=== PATIENT | female | born 1975 | race Hispanic/Latino ===

== ENCOUNTER 2020-01-04 20:29 | Emergency (ER) | payer SELFPAY ==
[2020-01-04] MEDS ORDERED: NA CHLORIDE 0.9% 1,000 ML ONE (21:00)
[2020-01-04] MEDS ORDERED: MAGNE/ALUM HYDROXD 30 ML UCUP ONE ×2 (21:01)
[2020-01-04] MEDS ORDERED: LIDOCAINE VISCOUS 2% SOLN 15 ML UDC ONE (21:02)
[2020-01-04 21:12] LABS: Absolute Lymphocytes (CBC) 2.5 K/uL (0.7-4.9); Basophils % 0.2 % (0-1.3); Hematocrit 23.8 % (36.0-45.0); Lymphocytes % 29.6 % (15.3-44.8); MPV 9.4 fL (7.6-11.3); RBC Red Blood Cell Count 4.11 M/uL (3.86-4.86)
[2020-01-04 21:33] LABS: ALT/SGPT 18 U/L (12-78); AST/SGOT 19 U/L (15-37); Albumin 3.4 g/dL (3.4-5.0); Alkaline Phosphatase 106 U/L (45-117); BUN Blood Urea Nitrogen 16 mg/dL (7-18); Bicarbonate 24 mmol/L (21-32); Bilirubin Direct < 0.1 mg/dL (0-0.2); Bilirubin Total 0.3 mg/dL (0.2-1.0); Glucose Level 117 mg/dL (74-106); Lipase 57 U/L (73-393); Potassium 3.1 mmol/L (3.5-5.1); Protein, Total 7.4 g/dL (6.4-8.2); Sodium Level 140 mmol/L (136-145)
[2020-01-04 21:40] LABS: Anisocytosis 1+; Blood Morphology Comment NOTED (NOT SEEN); Hypochromasia 2+; Platelet Estimate ADEQ; Urine White Blood Cell Casts OK
[2020-01-04] MEDS ORDERED: MORPHINE 4 MG/ML SYR ONE (23:51)
[2020-01-05] MEDS ORDERED: NA CHLORIDE 0.9% 250 ML ONE (00:57)
[2020-01-05 05:07] LABS: Hematocrit 24.2 % (36.0-45.0)
--- NOTE | 2020-01-05 05:36 | ER ---
Nurse's Notes [facility] Name: Kathy Valente Age: 44 yrs Sex: Female : 1975 Arrival Date: 01/04/2020 Time: 20:38 Bed 28 Private MD: Diagnosis: Gastritis, unspecified, without bleeding;UTERINE FIBROIDS;Anemia in chronic diseases classified elsewhere Presentation: 01/04 20:38 Presenting complaint: Patient states: abdominal pain, sudden onset. nausea and jv1 vomiting. Transition of care: patient was not received from another setting of care. Onset of symptoms was January 04, 2020 at 20:00. Risk Assessment: Do you want to hurt yourself or someone else? Patient reports no desire to harm self or others. Initial Sepsis Screen: Does the patient meet any 2 criteria? No. Patient's initial sepsis screen is negative. Does the patient have a suspected source of infection? No. Patient's initial sepsis screen is negative. Care prior to arrival: None. 20:38 Method Of Arrival: EMS: [facility] jv1 21:12 Acuity: LETTY 3 jv1 Triage Assessment: 20:46 General: Appears in no apparent distress. uncomfortable, well groomed, Behavior is jv1 calm, cooperative. Pain: Complains of pain in abdomen, epigastric area, suprapubic area Pain does not radiate. Pain currently is 10 out of 10 on a pain scale. Quality of pain is described as aching, crampy, Pain began suddenly, Is intermittent. EENT: No signs and/or symptoms were reported regarding the EENT system. Neuro: Level of Consciousness is awake, alert, obeys commands, Oriented to person, place, time, situation. Cardiovascular: Denies chest pain, Capillary refill < 3 seconds Patient's skin is warm and dry. Respiratory: Airway is patent Breath sounds are clear bilaterally. GI: Abdomen is round non-distended, Bowel sounds present X 4 quads. Abd is soft X 4 quads Abdomen is tender to palpation in epigastric area and suprapubic area Reports lower abdominal pain, upper abdominal pain, nausea, vomiting. : No signs and/or symptoms were reported regarding the genitourinary system. Derm: Skin is intact, is healthy with good turgor, Skin is pink, warm \T\ dry. Musculoskeletal: No signs and/or symptoms reported regarding the musculoskeletal system. Circulation, motion, and sensation intact. Capillary refill < 3 seconds. 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 Historical: - Allergies: 20:45 No Known Allergies; jv1 - PMHx: 20:45 None; jv1 - PSHx: 20:45 Tubal ligation; Appendectomy; jv1 - Immunization history:: Adult Immunizations up to date. - Coronavirus screen:: The patient has NOT traveled to [place], [place], or [place] in the past 14 days. The patient has NOT had contact with known/suspected case of Coronavirus?. - Social history:: Smoking status: Patient/guardian denies using. - Ebola Screening: : No symptoms or risks identified at this time. Screenin:12 Abuse screen: Denies threats or abuse. Nutritional screening: No deficits noted. jv1 Tuberculosis screening: Never had TB. Fall Risk None identified. No fall in past 12 months (0 pts). Assessment: 20:45 General: Appears in no apparent distress. uncomfortable, Behavior is calm, cooperative, jv1 appropriate for age. Pain: Complains of pain in suprapubic area and epigastric area Pain does not radiate. Pain currently is 10 out of 10 on a pain scale. Quality of pain is described as aching, crampy, Pain began suddenly, Is intermittent. Neuro: Level of Consciousness is awake, alert, obeys commands, Oriented to person, place, time, situation. Cardiovascular: Denies chest pain. Respiratory: Airway is patent Respiratory effort is even, unlabored, Respiratory pattern is regular, symmetrical, Breath sounds are clear bilaterally. GI: Abdomen is round non-distended, Bowel sounds present X 4 quads. Abd is soft X 4 quads Abdomen is tender to palpation in suprapubic area and epigastric area Reports lower abdominal pain, upper abdominal pain, nausea, vomiting. : No signs and/or symptoms were reported regarding the genitourinary system. EENT: No signs and/or symptoms were reported regarding the EENT system. Derm: Skin is intact, is healthy with good turgor. Musculoskeletal: No signs and/or symptoms reported regarding the musculoskeletal system. Circulation, motion, and sensation intact. Capillary refill < 3 seconds. 21:26 Reassessment: Patient and/or family updated on plan of care and expected duration. Pain jv1 level reassessed. Patient is alert, oriented x 3, equal unlabored respirations, skin warm/dry/pink. Patient states feeling better. 22:15 Reassessment: Patient appears in no apparent distress at this time. Patient and/or jv1 family updated on plan of care and expected duration. Pain level reassessed. Patient is alert, oriented x 3, equal unlabored respirations, skin warm/dry/pink. Patient states feeling better. Patient states symptoms have improved. 22:51 Reassessment: pt in CT scan. jv1 23:27 Reassessment: Patient and/or family updated on plan of care and expected duration. Pain jv1 level reassessed. Patient is alert, oriented x 3, equal unlabored respirations, skin warm/dry/pink. pt came back from CT scan. 01/05 00:43 Reassessment: Patient and/or family updated on plan of care and expected duration. Pain jv1 level reassessed. Patient is alert, oriented x 3, equal unlabored respirations, skin warm/dry/pink. Patient states feeling better. Patient states symptoms have improved. 01:36 Reassessment: Patient and/or family updated on plan of care and expected duration. Pain jv1 level reassessed. Patient is alert, oriented x 3, equal unlabored respirations, skin warm/dry/pink. Patient states feeling better. Patient states symptoms have improved. ongoing blood transfusion. 02:30 Reassessment: Patient and/or family updated on plan of care and expected duration. Pain jv1 level reassessed. Patient is alert, oriented x 3, equal unlabored respirations, skin warm/dry/pink. Patient states feeling better. Patient states symptoms have improved. finished blood transfusion. no negative reactions noted. . 03:43 Reassessment: Patient appears in no apparent distress at this time. Patient and/or jv1 family updated on plan of care and expected duration. Pain level reassessed. Patient is alert, oriented x 3, equal unlabored respirations, skin warm/dry/pink. Patient states feeling better. Patient states symptoms have improved. . 04:39 Reassessment: pt appears to be sleeping, eyes closed, resp unlabored, arouses easily, bb post transfusion labs drawn pt awaiting results, IV site intact, patent, no erythema or edema noted. 05:50 Reassessment: Patient is alert, oriented x 3, equal unlabored respirations, skin bb warm/dry/pink. pt verbalized understanding of and agrees to plan of care discharge instructions given pt ambulated with steady gait to exit. Vital Signs: 01/04 20:40 BP 115 / 59 LA (auto/lg); Pulse 52; Resp 16 S; Temp 98.2; Pulse Ox 100% on R/A; Pain jp3 8/10; 21:15 BP 122 / 66; Pulse 60; Resp 18; Temp 98.2; Pulse Ox 98% ; Pain 8/10; jv1 21:32 BP 104 / 45; Pulse 60; Resp 18; Temp 98; Pain 5/10; jv1 22:16 BP 107 / 53; Pulse 71; Resp 18; Temp 98.2; Pulse Ox 98% on R/A; Pain 0/10; jv1 23:34 BP 126 / 96; Pulse 79; Resp 18; Temp 98.5; Pulse Ox 100% ; Pain 8/10; jv1 / 00:43 BP 111 / 54; Pulse 61; Resp 18; Temp 98; Pulse Ox 100% ; Pain 0/10; jv1 01:30 BP 107 / 59; Pulse 61; Resp 18; Temp 97.5; Pulse Ox 99% ; Pain 0/10; jv1 02:30 BP 110 / 70; Pulse 61; Resp 18; Temp 97.6; Pulse Ox 99% ; Pain 0/10; jv1 03:43 BP 106 / 60; Pulse 60; Resp 18; Temp 97.5; Pulse Ox 99% ; Pain 0/10; jv1 04:40 BP 106 / 64; Pulse 59; Resp 14 S; Pulse Ox 99% on R/A; bb 05:51 BP 101 / 65; Pulse 61; Resp 16 S; Temp 98.6(O); Pulse Ox 100% on R/A; bb ED Course: 01/04 20:38 Patient arrived in ED. jv1 20:39 Initial lab(s) drawn, by me, held in ED. Maintain EMS IV. Dressing intact. Good blood jp3 return noted. Site clean \T\ dry. Gauge \T\ site: 20-gauge in RAC. Patient maintains SpO2 saturation greater than 95% on room air. 20:39 Safety checks: Family/friend present: yes. Family/friends encouraged to stay with jp3 patient. Patient has correct armband on for positive identification. Call light in reach. Side rails up X 1. Side rails up X2. Warm blanket given. Verbal reassurance given. Pulse ox on. NIBP on. 20:39 Arm band placed on right wrist. Patient placed in an exam room, Patient notified of jv1 wait time. 20:46 Rich Mederos PA is PHCP. cp 20:46 Arnel Stanley MD is Attending Physician. cp 21:00 Initial lab(s) drawn, by me, sent to lab. Urine collected: clean catch specimen, clear, jp3 rafa colored. 21:12 Triage completed. jv1 21:33 CBC Smear Scan Sent. jv1 23:20 IV discontinued, intact, bleeding controlled, No redness/swelling at site. Pressure rr5 dressing applied, complaining of pain. IV line at right AC. 23:21 Inserted saline lock: 20 gauge in left antecubital area, using aseptic technique. rr5 23:35 CT Abd/Pelvis - IV Contrast Only In Process Unspecified. EDMS 01/05 04:40 Repeat lab(s) drawn. by me, sent to lab. bb 05:52 No provider procedures requiring assistance completed. IV discontinued, intact, bb bleeding controlled, No redness/swelling at site. Pressure dressing applied. Administered Medications: 01/04 21:00 Drug: NS 0.9% 1000 ml Route: IV; Rate: 1 bolus; Site: right antecubital; jv1 22:00 Follow up: Response: No adverse reaction; IV Status: Completed infusion jv1 21:02 CANCELLED (Physician Discretion): GI Cocktail with - (Maalox Suspension 30 ml, jv1 Lidocaine Liquid 2 % 20 ml, Phenobarbital-Belladonna 10 ml) PO once 21:11 Drug: GI Cocktail without - (Maalox Suspension 30 ml, Lidocaine Liquid 2 % 15 jv1 ml) Route: PO; 22:00 Follow up: Response: No adverse reaction; Pain is decreased jv1 01/05 00:03 Drug: morphine 4 mg {Note: rass 0.} Route: IVP; Site: left antecubital; jv1 00:30 Follow up: Response: No adverse reaction; Pain is decreased; RASS: Alert and Calm (0) jv1 Outcome: 05:35 Discharge ordered by . hayley 05:53 Discharged to home ambulatory. bb 05:53 Condition: stable 05:53 Discharge instructions given to patient, Instructed on discharge instructions, follow up and referral plans. medication usage, Demonstrated understanding of instructions, follow-up care, medications, Prescriptions given X 2. 05:53 Patient left the ED. bb Signatures: Dispatcher [employer] EDMS Rosaura Barnes RN RN bb Rich Mederos PA PA cp Wadley, Terrence, MD MD tw4 Bebo Devi jp3 Porsha Borja RN RN jv1 Bry Rosas RN RN rr5 Corrections: (The following items were deleted from the chart) 01/04 21:33 21:26 Pain: Complains of pain in suprapubic area and epigastric area Pain currently is jv1 5 out of 10 on a pain scale. jv1
--- NOTE | 2020-01-05 05:36 | EDPHYS ---
Physician Documentation [facility] Name: Kathy Valente Age: 44 yrs Sex: Female : 1975 Arrival Date: 01/04/2020 Time: 20:38 Bed 28 Private MD: ED Physician Arnel Stanley HPI: 01/05 01:23 This 44 yrs old Female presents to ER via EMS with complaints of abdominal tw4 pain. 01:23 The patient presents with abdominal pain. tw4 01:23 Onset: The symptoms/episode began/occurred just prior to arrival, today. The symptoms tw4 do not radiate. Associated signs and symptoms: none. The symptoms are described as sharp. Modifying factors: The symptoms are alleviated by nothing, the symptoms are aggravated by nothing. Severity of pain: At its worst the pain was moderate in the emergency department the pain is unchanged. The patient has not experienced similar symptoms in the past. 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 Historical: - Allergies: 20:45 No Known Allergies; jv1 - PMHx: 20:45 None; jv1 - PSHx: 20:45 Tubal ligation; Appendectomy; jv1 - Immunization history:: Adult Immunizations up to date. - Coronavirus screen:: The patient has NOT traveled to [place], [place], or [place] in the past 14 days. The patient has NOT had contact with known/suspected case of Coronavirus?. - Social history:: Smoking status: Patient/guardian denies using. - Ebola Screening: : No symptoms or risks identified at this time. ROS: 01/05 01:23 Constitutional: Negative for fever, chills, and weight loss, Eyes: Negative for injury, tw4 pain, redness, and discharge, Cardiovascular: Negative for chest pain, palpitations, and edema, Respiratory: Negative for shortness of breath, cough, wheezing, and pleuritic chest pain, Back: Negative for injury and pain, MS/Extremity: Negative for injury and deformity, Skin: Negative for injury, rash, and discoloration. Abdomen/GI: Positive for abdominal pain, nausea, Negative for nausea and vomiting, nausea, vomiting, and diarrhea, diarrhea, constipation, abdominal cramps, abdominal distension, anorexia, dysphagia, hematemesis, black/tarry stool, rectal pain, rectal bleeding. Exam: 01:23 Constitutional: This is a well developed, well nourished patient who is awake, alert, tw4 and in no acute distress. Head/Face: Normocephalic, atraumatic. Chest/axilla: Normal chest wall appearance and motion. Nontender with no deformity. No lesions are appreciated. Cardiovascular: Regular rate and rhythm with a normal S1 and S2. No gallops, murmurs, or rubs. Normal PMI, no JVD. No pulse deficits. Respiratory: Lungs have equal breath sounds bilaterally, clear to auscultation and percussion. No rales, rhonchi or wheezes noted. No increased work of breathing, no retractions or nasal flaring. Abdomen/GI: Soft, non-tender, with normal bowel sounds. No distension or tympany. No guarding or rebound. No evidence of tenderness throughout. Back: No spinal tenderness. No costovertebral tenderness. Full range of motion. MS/ Extremity: Pulses equal, no cyanosis. Neurovascular intact. Full, normal range of motion. Neuro: Awake and alert, GCS 15, oriented to person, place, time, and situation. Cranial nerves II-XII grossly intact. Motor strength 5/5 in all extremities. Sensory grossly intact. Cerebellar exam normal. Normal gait. Vital Signs: 01/04 20:40 BP 115 / 59 LA (auto/lg); Pulse 52; Resp 16 S; Temp 98.2; Pulse Ox 100% on R/A; Pain jp3 8/10; 21:15 BP 122 / 66; Pulse 60; Resp 18; Temp 98.2; Pulse Ox 98% ; Pain 8/10; jv1 21:32 BP 104 / 45; Pulse 60; Resp 18; Temp 98; Pain 5/10; jv1 22:16 BP 107 / 53; Pulse 71; Resp 18; Temp 98.2; Pulse Ox 98% on R/A; Pain 0/10; jv1 23:34 BP 126 / 96; Pulse 79; Resp 18; Temp 98.5; Pulse Ox 100% ; Pain 8/10; jv1 01/05 00:43 BP 111 / 54; Pulse 61; Resp 18; Temp 98; Pulse Ox 100% ; Pain 0/10; jv1 01:30 BP 107 / 59; Pulse 61; Resp 18; Temp 97.5; Pulse Ox 99% ; Pain 0/10; jv1 02:30 BP 110 / 70; Pulse 61; Resp 18; Temp 97.6; Pulse Ox 99% ; Pain 0/10; jv1 03:43 BP 106 / 60; Pulse 60; Resp 18; Temp 97.5; Pulse Ox 99% ; Pain 0/10; jv1 04:40 BP 106 / 64; Pulse 59; Resp 14 S; Pulse Ox 99% on R/A; bb 05:51 BP 101 / 65; Pulse 61; Resp 16 S; Temp 98.6(O); Pulse Ox 100% on R/A; bb MDM: 01/04 21:05 Patient medically screened. tw4 01/05 01:23 Data reviewed: vital signs, nurses notes, lab test result(s), cardiac enzymes, CBC, tw4 electrolytes, hepatic panel. Data interpreted: personnel monitor: rhythm is Pulse oximetry: Interpretation: normal. Counseling: I had a detailed discussion with the patient and/or guardian regarding: the historical points, exam findings, and any diagnostic results supporting the discharge/admit diagnosis. 05:36 Special discussion: Based on the patient's Hx, exam, and Dx evaluation, there is no tw4 indication for emergent surgery or inpatient Tx. It is understood by the patient/guardian that if the Sx's persist or worsen they need to return immediately for re-evaluation. I discussed with the patient/guardian in detail that at this point there is no indication for admission to the hospital. It is understood, however, that if the symptoms persist or worsen the patient needs to return immediately for re-evaluation. ED course: Pt received one unit of PBRC'S. 01/04 20:48 Order name: Basic Metabolic Panel; Complete Time: 21:48 tw4 01/04 21:50 Interpretation: Normal except: K 3.1; GLUC 117; CL 109; CA 8.4. tw4 01/04 20:48 Order name: CBC with Diff; Complete Time: 21:48 tw4 01/04 21:27 Interpretation: Normal except: HCT 23.8; HGB 6.5; MCV 58.1; MCH 15.8; MCHC 27.3; RDW tw4 20.4. 01/04 20:48 Order name: Creatinine for Radiology; Complete Time: 21:48 tw4 01/04 20:48 Order name: Hepatic Function; Complete Time: 21:48 tw4 01/04 20:48 Order name: Lipase; Complete Time: 21:48 tw4 01/04 21:30 Order name: CBC Smear Scan; Complete Time: 21:48 EDOR 01/04 22:12 Order name: CT Abd/Pelvis - IV Contrast Only tw 01/04 22:12 Order name: Type And Screen tw 01/05 00:30 Order name: ABO/RH no charge EDOR 01/05 00:31 Order name: Packed RBC Leukored EDOR 01/05 04:39 Order name: Hemoglobin bb 01/05 04:39 Order name: Hematocrit bb 01/04 20:48 Order name: IV Saline Lock; Complete Time: 21:10 tw4 01/04 20:48 Order name: Labs collected and sent; Complete Time: 21:10 [facility] 01/04 20:48 Order name: Urine Dipstick-Ancillary (obtain specimen); Complete Time: 21:10 tw4 01/04 20:48 Order name: Urine Test (obtain specimen); Complete Time: 21:10 tw4 Administered Medications: 01/04 21:00 Drug: NS 0.9% 1000 ml Route: IV; Rate: 1 bolus; Site: right antecubital; jv1 22:00 Follow up: Response: No adverse reaction; IV Status: Completed infusion jv1 21:02 CANCELLED (Physician Discretion): GI Cocktail with - (Maalox Suspension 30 ml, jv1 Lidocaine Liquid 2 % 20 ml, Phenobarbital-Belladonna 10 ml) PO once 21:11 Drug: GI Cocktail without - (Maalox Suspension 30 ml, Lidocaine Liquid 2 % 15 jv1 ml) Route: PO; 22:00 Follow up: Response: No adverse reaction; Pain is decreased jv1 01/05 00:03 Drug: morphine 4 mg {Note: rass 0.} Route: IVP; Site: left antecubital; jv1 00:30 Follow up: Response: No adverse reaction; Pain is decreased; RASS: Alert and Calm (0) jv1 Disposition: 01/05/20 05:35 Discharged to Home. Impression: Gastritis, unspecified, without bleeding, UTERINE FIBROIDS, Anemia in chronic diseases classified elsewhere. - Condition is Stable. - Discharge Instructions: Anemia, Nonspecific, Gastritis, Adult, [id number], Uterine Fibroids, [id number]. - Prescriptions for Protonix 40 mg Oral Tablet - take 1 tablet by ORAL route once daily; 30 tablet. Zofran 4 mg Oral Tablet - take 1 tablet by ORAL route every 12 hours As needed; 6 tablet. - Medication Reconciliation Form, Thank You Letter, Antibiotic Education, Prescription Opioid Use form. - Follow up: Private Physician; When: Upon discharge from the Emergency Department; Reason: If symptoms return, Recheck today's complaints, Continuance of care, Re-evaluation by your physician. - Problem is an ongoing problem. - Symptoms have improved. Signatures: Dispatcher [employer] EDRosaura Heaton, RN RN Arnel Whatley MD MD tw4 Porsha Borja RN RN jv1 Corrections: (The following items were deleted from the chart) 01/04 21:02 20:48 GI Cocktail with - (Maalox 30 ml, Lidocaine 20 ml, jv1 Phenobarbital-Belladonna 10 ml) PO once ordered. [facility] 21:48 21:49 Normal except: K 3.1; GLUC 117; CL 109. 4 tw4 01/05 04:01 01/04 22:44 Transfer - Initiate ordered. [facility] jv1 01/05 05:53 05:35 01/05/2020 05:35 Discharged to Home. Impression: Gastritis, unspecified, without bb bleeding; UTERINE FIBROIDS; Anemia in chronic diseases classified elsewhere. Condition is Stable. Forms are Medication Reconciliation Form, Thank You Letter, Antibiotic Education, Prescription Opioid Use. Follow up: Private Physician; When: Upon discharge from the Emergency Department; Reason: If symptoms return, Recheck today's complaints, Continuance of care, Re-evaluation by your physician. Problem is an ongoing problem. Symptoms have improved. 4
[2020-01-05 06:20] VITALS: BP 101/65; TEMP 98.6; O2SAT 100
--- NOTE | 2020-01-06 10:58 | RAD REPORT ---
EXAM DESCRIPTION: Abdomen Pelvis W Contrast CLINICAL HISTORY: 44 years Female ABD PAIN COMPARISON: None. TECHNIQUE: Contiguous axial images obtained through the abdomen and pelvis following IV contrast. Re formatted images obtained. This exam was performed according to our department optimization program which includes automated exp osure control, adjustment of the mA and/or kv according to patient size and/or use of iterative recon struction technique. FINDINGS: Minimal dependent atelectatic changes in the dependent right lung. The liver is enlarged measuring 19 cm in length. The spleen and pancreas appear unremarkable. No adrenal masses. The kidneys appear unremarkable. No hydronephrosis. The gallbladder is visualized. No aneurysmal dilatation of the aorta. No bowel obstruction. The appendix is not visualized secondary to previous appendectomy. No significant free pelvic fluid. There are multiple fibroids in the uterus. The largest fibroi d measures approximately 6.5 cm in maximum diameter. Small fat-containing umbilical hernia. IMPRESSION: Fibroid uterus. Mild hepatomegaly. Electronically signed by: Bucky Khalil MD 01/04/2020 11:50 PM JIG AND FIXTURE REPAIRER Due to temporary technical issues with the PACS/Fluency reporting system, reports are being signed by the in house radiologist as a courtesy to ensure prompt reporting. The interpreting radiologist is f ully responsible for the content of the report.
== END 2020-01-05 05:53 | disposition home or self-care (01) ==
LOC: ER 20:29
PROC: 30233N1 Transfusion of Nonautologous Red Blood Cells into Peripheral Vein, Percutaneous Approach (ICD-10-PCS; principal; 2020-01-05)
DX: D64.9 Anemia, unspecified (principal); D25.9 Leiomyoma of uterus, unspecified; K29.70 Gastritis, unspecified, without bleeding
CPT/HCPCS: 36415; 74177; 80048; 80076; 83690; 85014; 85018; 85025; 86850; 86900; 86901; 96361; 96374; 99285; J7030; P9016; Q9967

== ENCOUNTER 2020-11-27 12:43 | Emergency (ER) | payer OTHER, SELFPAY ==
[2020-11-27 13:38] LABS: Absolute Lymphocytes (CBC) 1.9 K/uL (0.7-4.9); Basophils % 0.3 % (0-1.3); Hematocrit 25.8 % (36.0-45.0); Lymphocytes % 40.6 % (15.3-44.8); MPV 9.2 fL (7.6-11.3); RBC Red Blood Cell Count 4.49 M/uL (3.86-4.86)
[2020-11-27 13:45] LABS: Potassium 3.5 mmol/L (3.5-5.1)
--- NOTE | 2020-11-27 13:56 | RAD REPORT ---
EXAM DESCRIPTION: CT - Stone Protocol - 11/27/2020 1:40 pm CLINICAL HISTORY: ABD PAIN COMPARISON: Abdomen Pelvis W Contrast dated 01/04/2020 TECHNIQUE: Axial [address] imaging of the abdomen and pelvis was performed without IV contrast. No IV contrast was given because of allergy, abnormal renal function, patient refusal or physician re quest. No oral contrast. All CT scans are performed using dose optimization technique as appropriate and may include automated exposure control or mA/KV adjustment according to patient size. FINDINGS: No suspicious findings in the lung bases. The liver, spleen and pancreas show no suspicious findings on non-contrast imaging. Gallbladder and b iliary tree are also without suspicious finding. No hydronephrosis or suspicious renal mass. No significant adrenal finding. Isodense renal masses an d pyelonephritis cannot be excluded in the absence of IV contrast. The urinary bladder is without sig nificant finding. Large bulky multi fibroid uterus is noted not clearly different from December 2019. No ovarian suspicious finding. No dilated bowel loops or bowel wall thickening. Appendectomy clips are present. No active GI process seen. No free air, free fluid or inflammatory stranding. No mass or bulky lymphadenopathy. Minimal fat inf iltration into the left inguinal canal similar to comparison. Very minimal fat only umbilical hernia also similar to comparison. No suspicious bony findings. Motion degradation affects the mid and upper abdomen. IMPRESSION: Non-contrast enhanced CT abdomen and pelvis imaging show no acute or emergent finding. Nonacute findings detailed in the body of the report. Full assessment is limited is the absence of IV contrast.
[2020-11-27] MEDS ORDERED: NA CHLORIDE 0.9% 250 ML ONE (14:48)
--- NOTE | 2020-11-27 14:51 | ER ---
Nurse's Notes [facility] Name: Kathy Valente Age: 45 yrs Sex: Female : 1975 Arrival Date: 11/27/2020 Time: 12:47 Bed 19 Private MD: Diagnosis: Anemia, unspecified;Abnormal uterine and vaginal bleeding, unspecified;Leiomyoma of uterus Presentation: 11/27 12:50 Chief complaint: Patient states: Blood work done yesterday. PCP told me my Hgb is low ca1 at 6.5 or 6.6. No complaints at this time. Coronavirus screen: Client denies travel out of the [place] in the last 14 days. At this time, the client does not indicate any symptoms associated with coronavirus-19. Ebola Screen: Patient negative for fever greater than or equal to 101.5 degrees Fahrenheit, and additional compatible Ebola Virus Disease symptoms Patient denies exposure to infectious person. Patient denies travel to an Ebola-affected area in the 21 days before illness onset. No symptoms or risks identified at this time. Initial Sepsis Screen: Does the patient meet any 2 criteria? No. Patient's initial sepsis screen is negative. Does the patient have a suspected source of infection? No. Patient's initial sepsis screen is negative. Risk Assessment: Do you want to hurt yourself or someone else? Patient reports no desire to harm self or others. Onset of symptoms was November 27, 2020. 12:50 Method Of Arrival: Ambulatory ca1 12:50 Acuity: LETTY 3 ca1 Triage Assessment: 12:57 General: Appears in no apparent distress. comfortable, Behavior is calm, cooperative, bp appropriate for age. Pain: Denies pain. EENT: No deficits noted. Neuro: No deficits noted. Cardiovascular: No deficits noted. Respiratory: No deficits noted. GI: No signs and/or symptoms were reported involving the gastrointestinal system. : No signs and/or symptoms were reported regarding the genitourinary system. Derm: No deficits noted. Musculoskeletal: No deficits noted. 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 - Social history:: Smoking status: Patient denies any tobacco usage or history of. Screenin:57 Abuse screen: Denies threats or abuse. Denies injuries from another. Nutritional bp screening: No deficits noted. Tuberculosis screening: No symptoms or risk factors identified. Fall Risk None identified. Assessment: 12:57 General: SEE TRIAGE NOTE. bp 14:36 Reassessment: Patient appears in no apparent distress at this time. No changes from bp previously documented assessment. Patient and/or family updated on plan of care and expected duration. Pain level reassessed. Patient is alert, oriented x 3, equal unlabored respirations, skin warm/dry/pink. CONSENT FOR PRBC TRANSFUSION SIGNED/WITNESSED. PENDING BLOOD BANK DELIVERY. 14:55 Reassessment: Patient appears in no apparent distress at this time. No changes from bp previously documented assessment. Patient and/or family updated on plan of care and expected duration. Pain level reassessed. Patient is alert, oriented x 3, equal unlabored respirations, skin warm/dry/pink. BLOOD BALANCE REQUESTED FROM LAB. 17:32 Reassessment: TRANSFUSION CONCLUDED. PT D/C HOME AMBULATORY WITH FAMILY, DX WITH ANEMIA bp AND FIBROID. Vital Signs: 12:50 BP 129 / 58; Pulse 68; Resp 18 S; Temp 99.5(O); Pulse Ox 100% on R/A; Weight 81.65 kg ca1 (R); Height 5 ft. 4 in. (162.56 cm) (R); Pain 0/10; 13:46 BP 117 / 62; Pulse 74; Resp 17; Pulse Ox 100% on R/A; mh5 14:30 BP 105 / 44; Pulse 61; Resp 16; Pulse Ox 100% ; bp 15:30 BP 116 / 75; Pulse 69; Resp 17; Pulse Ox 97.8% ; bp 17:30 BP 101 / 63; Pulse 72; Resp 16; Temp 97.1; Pulse Ox 100% ; bp 12:50 Body Mass Index 30.90 (81.65 kg, 162.56 cm) ca1 ED Course: 12:47 Patient arrived in ED. rg4 12:53 Triage completed. ca1 12:54 Arm band placed on right wrist. ca1 12:57 Delta Arnett, RN is Primary Nurse. bp 12:57 Patient has correct armband on for positive identification. Bed in low position. Call bp light in reach. Side rails up X2. 12:58 Wendi Evans FNP-C is [facility]. kb 12:58 Arnel Stanley MD is Attending Physician. kb 13:15 Inserted saline lock: 20 gauge in right wrist, using aseptic technique. Blood collected.bp 13:41 CT Stone Protocol In Process Unspecified. EDMS 17:30 No provider procedures requiring assistance completed. IV discontinued, intact, bp bleeding controlled, No redness/swelling at site. Pressure dressing applied. Administered Medications: No medications were administered Outcome: 14:50 Discharge ordered by MD. kb 17:30 Discharged to home ambulatory. bp 17:30 Condition: stable 17:30 Discharge instructions given to patient, Instructed on discharge instructions, follow up and referral plans. Demonstrated understanding of instructions, follow-up care. 17:39 Patient left the ED. bp Signatures: Dispatcher [employer] EDRI Wendi Evans FNP-C FNP-Ckb Garcia, Rubi 4 Ivy Valente [facility] Delta Arnett, RN RN bp Vero Givens RN RN ca1
--- NOTE | 2020-11-27 14:51 | EDPHYS ---
Physician Documentation [facility] Name: Kathy Valente Age: 45 yrs Sex: Female : 1975 Arrival Date: 11/27/2020 Time: 12:47 Bed 19 Private MD: ED Physician Arnel Stanley HPI: 11/27 14:25 This 45 yrs old Female presents to ER via Ambulatory with complaints of kb Abnormal Lab Results. 14:25 The patient presents with vaginal bleeding that is moderate. Onset: The kb symptoms/episode began/occurred year ago. Modifying factors: The symptoms are alleviated by nothing, the symptoms are aggravated by nothing. Associated signs and symptoms: Pertinent positives: vaginal bleeding. Severity of symptoms: At their worst the symptoms were moderate, in the emergency department the symptoms are unchanged. The patient's method of control includes BCP. The patient has experienced similar episodes in the past. The patient has been recently seen by a physician: the patient's primary care provider, yesterday, with similar presenting complaints, lab tests were done. Pt reports she has had fatigue, shortness of breath on exertion and weakness for a long time. Asked her PCP to do labs yesterday. Today was called and told that her hgb was 6.5 and that she needed to come here for a transfusion. Pt reports she has had heavy periods for years and that she has mild vaginal bleeding between periods. Has been seen for this issue and was put on iron supplements and BCP but it hasn't helped. "I think it's time to have it all taken out.". 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 - Social history:: Smoking status: Patient denies any tobacco usage or history of. ROS: 14:22 Cardiovascular: Negative for chest pain, palpitations, and edema, Abdomen/GI: Negative kb for abdominal pain, nausea, vomiting, diarrhea, and constipation, MS/Extremity: Negative for injury and deformity, Skin: Negative for injury, rash, and discoloration. 14:22 Constitutional: Positive for fatigue, Negative for body aches, chills, fever, malaise, poor PO intake, weight loss. 14:22 Respiratory: Positive for dyspnea on exertion. 14:22 : Positive for vaginal bleeding. 14:22 Neuro: Positive for weakness. Exam: 14:22 Constitutional: This is a well developed, well nourished patient who is awake, alert, kb and in no acute distress. Head/Face: Normocephalic, atraumatic. Chest/axilla: Normal chest wall appearance and motion. Nontender with no deformity. No lesions are appreciated. Cardiovascular: Regular rate and rhythm with a normal S1 and S2. No gallops, murmurs, or rubs. Normal PMI, no JVD. No pulse deficits. Respiratory: Lungs have equal breath sounds bilaterally, clear to auscultation and percussion. No rales, rhonchi or wheezes noted. No increased work of breathing, no retractions or nasal flaring. Abdomen/GI: Soft, non-tender, with normal bowel sounds. No distension or tympany. No guarding or rebound. No evidence of tenderness throughout. Skin: Warm, dry with normal turgor. Normal color with no rashes, no lesions, and no evidence of cellulitis. MS/ Extremity: Pulses equal, no cyanosis. Neurovascular intact. Full, normal range of motion. Neuro: Awake and alert, GCS 15, oriented to person, place, time, and situation. Cranial nerves II-XII grossly intact. Motor strength 5/5 in all extremities. Sensory grossly intact. Cerebellar exam normal. Normal gait. Vital Signs: 12:50 BP 129 / 58; Pulse 68; Resp 18 S; Temp 99.5(O); Pulse Ox 100% on R/A; Weight 81.65 kg ca1 (R); Height 5 ft. 4 in. (162.56 cm) (R); Pain 0/10; 13:46 BP 117 / 62; Pulse 74; Resp 17; Pulse Ox 100% on R/A; mh5 14:30 BP 105 / 44; Pulse 61; Resp 16; Pulse Ox 100% ; bp 15:30 BP 116 / 75; Pulse 69; Resp 17; Pulse Ox 97.8% ; bp 17:30 BP 101 / 63; Pulse 72; Resp 16; Temp 97.1; Pulse Ox 100% ; bp 12:50 Body Mass Index 30.90 (81.65 kg, 162.56 cm) ca1 MDM: 12:59 Patient medically screened. kb 14:24 Data reviewed: vital signs, nurses notes. Data interpreted: Pulse oximetry: on room air kb is 100 %. Interpretation: normal. 14:24 Counseling: I had a detailed discussion with the patient and/or guardian regarding: the kb historical points, exam findings, and any diagnostic results supporting the discharge/admit diagnosis, lab results, radiology results, the need for outpatient follow up, an OB/Gyne specialist, to return to the emergency department if symptoms worsen or persist or if there are any questions or concerns that arise at home. 14:24 ED course: Discussed transfusion with ERP. Agrees with transfusing one unit and kb discharging home to follow up with REMEDIAL PROJECT MANAGER. Pt will follow up with Dr Randolph. 11/27 13:02 Order name: CBC with Diff; Complete Time: 13:55 kb 11/27 13:02 Order name: Basic Metabolic Panel; Complete Time: 13:46 kb 11/27 13:02 Order name: Type And Screen kb 11/27 13:16 Order name: Hemoglobin A1c bp 11/27 14:14 Order name: LAB Add On eb 11/27 14:36 Order name: Packed RBCs (Additional Unit) EDMS 11/27 13:02 Order name: IV Start; Complete Time: 13:19 kb 11/27 13:20 Order name: CT Stone Protocol; Complete Time: 13:59 kb Administered Medications: No medications were administered Disposition: 11/27/20 14:50 Discharged to Home. Impression: Anemia, unspecified, Abnormal uterine and vaginal bleeding, unspecified, Leiomyoma of uterus. - Condition is Stable. - Discharge Instructions: Anemia, Nonspecific, Uterine Fibroids, [id number], Abnormal Uterine Bleeding, [id number]. - Medication Reconciliation Form, Thank You Letter, Antibiotic Education, Prescription Opioid Use form. - Follow up: Emergency Department; When: As needed; Reason: Worsening of condition. Follow up: Private Physician; When: 2 - 3 days; Reason: Recheck today's complaints, Continuance of care, Re-evaluation by your physician. Addendum: 11/29/2020 07:36 Co-signature as Attending Physician, Arnel Stanley MD I agree with the assessment and t w4 plan of care. Signatures: Dispatcher [employer] EDWendi Thakkar, STANLEY LITTLEJOHN-Delta Gannon, RN RN bp Arenl Stanley MD MD tw4 Vero Givens RN RN ca1 Corrections: (The following items were deleted from the chart) 11/27 17:39 14:50 11/27/2020 14:50 Discharged to Home. Impression: Anemia, unspecified; Abnormal bp uterine and vaginal bleeding, unspecified; Leiomyoma of uterus. Condition is Stable. Discharge Instructions: Anemia, Nonspecific, Uterine Fibroids, [id number], Abnormal Uterine Bleeding, [id number]. Forms are Medication Reconciliation Form, Thank You Letter, Antibiotic Education, Prescription Opioid Use. Follow up: Emergency Department; When: As needed; Reason: Worsening of condition. Follow up: Private Physician; When: 2 - 3 days; Reason: Recheck today's complaints, Continuance of care, Re-evaluation by your physician. kb
[2020-11-27 17:55] VITALS: O2SAT 100
[2020-11-27 17:59] VITALS: BP 101/63; TEMP 97.1
== END 2020-11-27 17:39 | disposition home or self-care (01) ==
LOC: ER 12:43
PROC: 30233N1 Transfusion of Nonautologous Red Blood Cells into Peripheral Vein, Percutaneous Approach (ICD-10-PCS; principal; 2020-11-27)
DX: D64.9 Anemia, unspecified (principal); N93.9 Abnormal uterine and vaginal bleeding, unspecified; D25.9 Leiomyoma of uterus, unspecified
CPT/HCPCS: 85025; 80048; 36415; 86900; 86850; 86901; 76377; 74176; 99284; 36430; P9016; J7050

== ENCOUNTER 2021-01-30 16:13 | Emergency (ER) | payer OTHER ==
[2021-01-30 17:34] LABS: Absolute Lymphocytes (CBC) 1.6 K/uL (0.7-4.9); Basophils % 0.4 % (0-1.3); Hematocrit 24.8 % (36.0-45.0); Lymphocytes % 17.7 % (15.3-44.8); MPV 8.7 fL (7.6-11.3); RBC Red Blood Cell Count 4.16 M/uL (3.86-4.86)
[2021-01-30] MEDS ORDERED: ONDANSETRON 4 MG/2 ML VIAL ONE (17:36)
[2021-01-30] MEDS ORDERED: MORPHINE 4 MG/ML SYR ONE (17:36)
[2021-01-30 17:44] LABS: Albumin 3.5 g/dL (3.4-5.0); Bilirubin Direct 0.1 mg/dL (0-0.2); Bilirubin Total 0.3 mg/dL (0.2-1.0); Potassium 3.4 mmol/L (3.5-5.1); Protein, Total 7.5 g/dL (6.4-8.2)
--- NOTE | 2021-01-30 18:18 | RAD REPORT ---
EXAM DESCRIPTION: CT - Abdomen Pelvis W Contrast - 01/30/2021 5:59 pm CLINICAL HISTORY: ABD PAINthat is chronic with more severe pain today. History of fibroids. COMPARISON: Abdomen Pelvis W Contrast dated 01/04/2020; Stone Protocol dated 11/27/2020 TECHNIQUE: Biphasic, helical CT imaging of the abdomen and pelvis was performed following 100 ml non -ionic IV contrast. No oral contrast administered. All CT scans are performed using dose optimization technique as appropriate and may include automated exposure control or mA/KV adjustment according to patient size. FINDINGS: No suspicious findings in the lung bases. The liver, spleen, and pancreas show no suspicious findings. Fatty infiltration of the liver is prese nt. No gallbladder or biliary tree abnormality. Symmetric renal function is seen with no hydronephrosis or suspicious renal mass. No pyelonephritis o r acute parenchymal process. No bladder abnormalities. No adrenal abnormalities. Enlarged, lobulated uterus is noted. In the central uterus there is a 4.6 centimeter heterogeneous mass. Posterior left m id uterus demonstrates a 4.6 centimeter mass. These are both believed to be fibroids. Both measure la rger on the current examination compared with December 2019. There is a 2.4 centimeter left ovarian c yst. A 4.2 centimeter right ovarian cyst is present without rupture or hemorrhage findings. A 4.3 joaquin timeter exophytic mass lateral lower uterus on the right has not changed. Endometrium is distorted by the multiple fibroids. Additional smaller fibroids may well be present. . No dilated bowel loops or bowel wall thickening. No free air, free fluid or inflammatory stranding. No hernia, mass or bulky lymphadenopathy. No suspicious bony findings. IMPRESSION: Multi fibroid uterus as detailed above. Some of the fibroids have enlarged since 2019. No acute or emergent uterine finding. A 4.2 centimeter posterior right adnexal cystic mass believed to be an ovarian cyst rather than uteri ne mass. No cyst rupture or hemorrhage findings. No free air, free fluid or inflammatory stranding. No acute or GI finding. Liver is fatty infiltrated.
[2021-01-30 18:42] LABS: Anisocytosis 1+; Blood Morphology Comment NOTED (NOT SEEN); Hypochromasia 3+; Ovalocytes 1+; Platelet Estimate ADEQ; Poikilocytosis 2+; Polychromasia SLIGHT; Teardrop Cell 1+; White Blood Cell Scan OK (OK)
--- NOTE | 2021-01-30 19:27 | EDPHYS ---
Physician Documentation [facility] Name: Kathy Valente Age: 45 yrs Sex: Female : 1975 Arrival Date: 01/30/2021 Time: 16:14 Bed 24 Private MD: LUIS Physician Rich Lopez HPI: 01/30 16:49 This 45 yrs old Female presents to ER via Ambulatory with complaints of pm1 Abdominal Pain. 16:49 The patient presents with abdominal pain in the lower abdomen. Onset: The pm1 symptoms/episode began/occurred ongoing for multiple years but worse today. The symptoms do not radiate. Associated signs and symptoms: Pertinent positives: nausea, Pertinent negatives: diarrhea, dysuria, fever, vomiting. The symptoms are described as crampy. Modifying factors: The symptoms are alleviated by nothing, the symptoms are aggravated by nothing. Severity of pain: in the emergency department the pain is actually worse. The patient has experienced similar episodes in the past, multiple times, today's symptoms are similar, to previous fibroids. The patient has not recently seen a physician, last seen here in the ER for similar pain at the beginning of the year. 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 - Social history:: Smoking status: . ROS: 16:49 Constitutional: Negative for fever, chills, and weight loss, Cardiovascular: Negative pm1 for chest pain, palpitations, and edema, Respiratory: Negative for shortness of breath, cough, wheezing, and pleuritic chest pain. 16:49 Back: Negative for injury and pain, MS/Extremity: Negative for injury and deformity, Skin: Negative for injury, rash, and discoloration, Neuro: Negative for headache, weakness, numbness, tingling, and seizure. 16:49 Abdomen/GI: Positive for abdominal pain, nausea, of the right lower quadrant and left lower quadrant, Negative for vomiting, diarrhea, constipation. Exam: 16:49 Constitutional: This is a well developed, well nourished patient who is awake, alert, pm1 and in no acute distress. Head/Face: Normocephalic, atraumatic. 16:49 Back: No spinal tenderness. No costovertebral tenderness. Full range of motion. Skin: Warm, dry with normal turgor. Normal color with no rashes, no lesions, and no evidence of cellulitis. MS/ Extremity: Pulses equal, no cyanosis. Neurovascular intact. Full, normal range of motion. 16:49 Cardiovascular: Exam negative for acute changes, Rate: normal, Rhythm: regular, Pulses: no pulse deficits are appreciated. 16:49 Respiratory: Exam negative for acute changes, respiratory distress, shortness of breath. 16:49 Abdomen/GI: Inspection: abdomen appears normal, Palpation: soft, in all quadrants, mild abdominal tenderness, in the suprapubic area. 16:49 Neuro: Exam negative for acute changes, Orientation: is normal, Mentation: is normal, Motor: is normal, moves all fours. Vital Signs: 16:27 BP 132 / 83; Pulse 80; Resp 16; Temp 97.4; Pulse Ox 100% on R/A; iw 17:30 BP 119 / 65; Pulse 67; Resp 16 S; Pulse Ox 100% on R/A; ca1 18:20 BP 94 / 52; Pulse 71; Resp 16 S; Pulse Ox 100% on R/A; ca1 19:00 BP 99 / 55; Pulse 70; Resp 16; Pulse Ox 100% ; sf MDM: 16:34 Patient medically screened. nereyda 17:42 ED course: Stable anemia since 11/27/2020. Patient without any vaginal bleeding or any pm1 other signs of bleeding. 19:24 Data reviewed: vital signs. Data interpreted: Pulse oximetry: on room air is 100 %. pm1 Interpretation: normal. Counseling: I had a detailed discussion with the patient and/or guardian regarding: the historical points, exam findings, and any diagnostic results supporting the discharge/admit diagnosis, lab results, radiology results, the need for outpatient follow up, for definitive care, an OB/Gyne specialist, to return to the emergency department if symptoms worsen or persist or if there are any questions or concerns that arise at home. 19:27 ED course: Patient reports noncompliance with her iron supplementation and pm1 control pills. Recommended follow up with fur mixer operator and improved dietary for iron deficiency anemia. 01/30 16:49 Order name: Basic Metabolic Panel; Complete Time: 17:44 pm1 01/30 16:49 Order name: CBC with Diff; Complete Time: 18:48 pm1 01/30 16:49 Order name: Hepatic Function; Complete Time: 17:44 pm1 01/30 16:49 Order name: Lipase; Complete Time: 17:44 pm1 01/30 17:33 Order name: Urine Dipstick--Ancillary (enter results) eb 01/30 17:33 Order name: Urine --Ancillary (enter results); Complete Time: 20:14 eb 01/30 16:49 Order name: IV Saline Lock; Complete Time: 17:17 pm1 01/30 16:49 Order name: Labs collected and sent; Complete Time: 17:17 pm1 01/30 16:49 Order name: CT Abd/Pelvis - IV Contrast Only pm1 01/30 17:34 Order name: Urine Dipstick-Ancillary; Complete Time: 20:14 EDMS 01/30 18:19 Order name: CT; Complete Time: 18:48 EDMS 01/30 18:43 Order name: CBC Smear Scan; Complete Time: 18:48 EDMS 01/30 16:49 Order name: Urine Dipstick-Ancillary (obtain specimen); Complete Time: 17:16 pm1 01/30 16:49 Order name: Urine Test (obtain specimen); Complete Time: 17:16 pm1 Administered Medications: 17:20 Drug: Zofran (Ondansetron) 4 mg Route: IVP; Site: left antecubital; ca1 17:22 Drug: morphine 4 mg {Note: RASS 0.} Route: IVP; Site: left antecubital; ca1 Disposition: 01/31 09:08 Co-signature as Attending Physician, Rich PIZARRO I agree with the assessment and nereyda plan of care. Disposition: 01/30/21 19:26 Discharged to Home. Impression: Unspecified ovarian cysts, Leiomyoma of uterus, Anemia, unspecified. - Condition is Stable. - Discharge Instructions: Iron Deficiency Anemia, Adult, Anemia, Nonspecific, Iron-Rich Diet, Uterine Fibroids, Ovarian Cyst. - Prescriptions for Ferrous Sulfate 325 mg (65 mg Iron) Oral Tablet - take 1 tablet by ORAL route every 8 hours; 90 tablet. Tylenol- Codeine #3 300-30 mg Oral Tablet - take 2 tablets by ORAL route every 4-6 hours As needed; 20 tablet. - Medication Reconciliation Form, Thank You Letter, Antibiotic Education, Prescription Opioid Use form. - Follow up: Emergency Department; When: As needed; Reason: Worsening of condition. Follow up: Private Physician; When: 2 - 3 days; Reason: Recheck today's complaints, Continuance of care, Re-evaluation by your physician. - Problem is new. - Symptoms have improved. Signatures: Dispatcher [employer] EDWA Rich Lopez MD MD cha Williams, Irene, RN RN iw Joel Bolaños NP MEAT COOLER pm1 Vero Givens RN RN ca1 Alexander Chinchilla RN RN sf Corrections: (The following items were deleted from the chart) 01/30 20:25 16:49 This 45 yrs old Female presents to ER via Ambulatory with complaints of pm1 Abdominal Pain - low. pm1 20:28 19:26 01/30/2021 19:26 Discharged to Home. Impression: Unspecified ovarian cysts; sf Leiomyoma of uterus; Anemia, unspecified. Condition is Stable. Forms are Medication Reconciliation Form, Thank You Letter, Antibiotic Education, Prescription Opioid Use. Follow up: Emergency Department; When: As needed; Reason: Worsening of condition. Follow up: Private Physician; When: 2 - 3 days; Reason: Recheck today's complaints, Continuance of care, Re-evaluation by your physician. Problem is new. Symptoms have improved. pm1
--- NOTE | 2021-01-30 19:27 | ER ---
Nurse's Notes [facility] Name: Kathy Valente Age: 45 yrs Sex: Female : 1975 Arrival Date: 01/30/2021 Time: 16:14 Bed 24 Private MD: Diagnosis: Unspecified ovarian cysts;Leiomyoma of uterus;Anemia, unspecified Presentation: 01/30 16:27 Chief complaint: Patient states: has had lower abd pain for a couple years, was told iw she had uterine fibroids, today she had a lot of pain and felt like something ruptured. Coronavirus screen: At this time, the client does not indicate any symptoms associated with coronavirus-19. Ebola Screen: Patient negative for fever greater than or equal to 101.5 degrees Fahrenheit, and additional compatible Ebola Virus Disease symptoms Patient denies exposure to infectious person. Patient denies travel to an Ebola-affected area in the 21 days before illness onset. No symptoms or risks identified at this time. Initial Sepsis Screen: Does the patient meet any 2 criteria? No. Patient's initial sepsis screen is negative. Does the patient have a suspected source of infection? No. Patient's initial sepsis screen is negative. Risk Assessment: Do you want to hurt yourself or someone else? Patient reports no desire to harm self or others. Onset of symptoms was January 30, 2021. 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 - Social history:: Smoking status: . Screenin:45 Abuse screen: Denies threats or abuse. Denies injuries from another. Nutritional ca1 screening: No deficits noted. Tuberculosis screening: No symptoms or risk factors identified. Fall Risk IV access (20 points). Assessment: 16:45 General: Appears in no apparent distress. comfortable, Behavior is calm, cooperative, ca1 appropriate for age. Pain: Complains of pain in right lower quadrant and left lower quadrant Pain currently is 7 out of 10 on a pain scale. Pain began 1 day ago. Is intermittent. Neuro: Level of Consciousness is awake, alert, obeys commands, Oriented to person, place, time, situation. Cardiovascular: Heart tones S1 S2 present Capillary refill < 3 seconds Patient's skin is warm and dry. Respiratory: Airway is patent Respiratory effort is even, unlabored, Respiratory pattern is regular, symmetrical, Breath sounds are clear bilaterally. GI: Abdomen is round non-distended, Bowel sounds present X 4 quads. Abd is soft X 4 quads Abdomen is tender to palpation in right lower quadrant and left lower quadrant Reports nausea. : No signs and/or symptoms were reported regarding the genitourinary system. EENT: No signs and/or symptoms were reported regarding the EENT system. Derm: Skin is intact, is healthy with good turgor, Skin is pink, warm \T\ dry. Musculoskeletal: Circulation, motion, and sensation intact. Capillary refill < 3 seconds. 17:30 Reassessment: Patient appears in no apparent distress at this time. Patient and/or ca1 family updated on plan of care and expected duration. Pain level reassessed. Patient is alert, oriented x 3, equal unlabored respirations, skin warm/dry/pink. 18:20 Reassessment: Patient appears in no apparent distress at this time. Patient and/or ca1 family updated on plan of care and expected duration. Pain level reassessed. Patient is alert, oriented x 3, equal unlabored respirations, skin warm/dry/pink. Vital Signs: 16:27 BP 132 / 83; Pulse 80; Resp 16; Temp 97.4; Pulse Ox 100% on R/A; iw 17:30 BP 119 / 65; Pulse 67; Resp 16 S; Pulse Ox 100% on R/A; ca1 18:20 BP 94 / 52; Pulse 71; Resp 16 S; Pulse Ox 100% on R/A; ca1 19:00 BP 99 / 55; Pulse 70; Resp 16; Pulse Ox 100% ; sf ED Course: 16:14 Patient arrived in ED. am2 16:28 Triage completed. iw 16:32 Joel Bolaños NP is PHCP. pm1 16:32 Rich Lopez MD is Attending Physician. pm1 16:42 Vero Givens RN is Primary Nurse. ca1 16:45 Patient has correct armband on for positive identification. Placed in gown. Bed in low ca1 position. Call light in reach. Side rails up X 1. Pulse ox on. NIBP on. Warm blanket given. 16:45 Arm band placed on right wrist. ca1 17:10 Missed attempt(s): 20 gauge in right antecubital area. Bleeding controlled, band aid ca1 applied, catheter tip intact. 17:17 Initial lab(s) drawn, by il, sent to lab. Inserted saline lock: 22 gauge in left ca1 antecubital area, using aseptic technique. Blood collected. 17:35 Notified Nurse Practitioner and/or Physician Pharmacy Student of a critical lab result(s), hgb ca1 7.2. 20:27 No provider procedures requiring assistance completed. IV discontinued, intact, sf bleeding controlled, No redness/swelling at site. Pressure dressing applied. Administered Medications: 17:20 Drug: Zofran (Ondansetron) 4 mg Route: IVP; Site: left antecubital; ca1 17:22 Drug: morphine 4 mg {Note: RASS 0.} Route: IVP; Site: left antecubital; ca1 Outcome: 19:26 Discharge ordered by . pm1 20:28 Discharged to home ambulatory. sf 20:28 Condition: stable 20:28 Discharge instructions given to patient, Instructed on discharge instructions, follow up and referral plans. medication usage, Demonstrated understanding of instructions, follow-up care, medications, Prescriptions given X 2. 20:28 Patient left the ED. sf Signatures: Silvia Colvin RN RN iw Joel Bolaños NP CERTIFIED PROSTHETIST VICE PRESIDENT pm1 Nicki Dos Santos am2 Vero Givens RN RN ca1 Alexander Chinchilla RN RN sf
[2021-01-30 20:03] LABS: Urine Blood NEGATIVE (NEG); Urine Glucose NEGATIVE (NEG); Urine Protein 1+ (NEG)
[2021-01-30 20:39] VITALS: TEMP 97.4; O2SAT 100
[2021-01-30 20:43] VITALS: BP 99/55
== END 2021-01-30 20:28 | disposition home or self-care (01) ==
LOC: ER 16:13
DX: N83.201 Unspecified ovarian cyst, right side (principal); D25.9 Leiomyoma of uterus, unspecified; D64.9 Anemia, unspecified
CPT/HCPCS: 85025; 80048; 36415; 81025; 80076; 81003; 83690; 74177; 96375; 96374; 99284; Q9967; J2405

== ENCOUNTER 2021-04-16 20:31 | Emergency (ER) | payer OTHER ==
[2021-04-16 21:10] LABS: Absolute Lymphocytes (CBC) 2.7 K/uL (0.7-4.9); Basophils % 0.9 % (0-1.3); Hematocrit 24.7 % (36.0-45.0); Lymphocytes % 25.6 % (15.3-44.8); RBC Red Blood Cell Count 4.27 M/uL (3.86-4.86)
[2021-04-16 21:33] LABS: BUN Blood Urea Nitrogen 16 mg/dL (7-18); Bicarbonate 24 mmol/L (21-32); Glucose Level 110 mg/dL (74-106); Potassium 3.4 mmol/L (3.5-5.1); Sodium Level 140 mmol/L (136-145)
[2021-04-16 21:37] LABS: Anisocytosis 2+; Blood Morphology Comment NOTED (NOT SEEN); Hypochromasia 3+; Ovalocytes 2+; Platelet Estimate ADEQ; White Blood Cell Scan OK (OK)
[2021-04-16] MEDS ORDERED: KETOROLAC 30 MG/ML INJ ONE (22:00)
[2021-04-16 22:09] LABS: Urine Blood Negative (Negative); Urine Glucose Negative (Negative); Urine Protein Negative (Negative); Urine Specific Gravity >=1.030 (1.005-1.030); Urine pH 6.5 (5.0-7.0)
--- NOTE | 2021-04-16 22:35 | EDPHYS ---
Physician Documentation [facility] Name: Kathy Valente Age: 45 yrs Sex: Female : 1975 Arrival Date: 04/16/2021 Time: 20:34 Bed 23 Private MD: ED Physician Felice Jang HPI: 04/16 23:21 This 45 yrs old Female presents to ER via Ambulatory with complaints of kb Abdominal Pain. 23:21 The patient presents with abdominal pain right lower quadrant. Onset: The kb symptoms/episode began/occurred yesterday. The symptoms radiate to right back. Associated signs and symptoms: Pertinent positives: vaginal bleeding, Pertinent negatives: nausea, vomiting, and diarrhea, fever. The symptoms are described as constant, sharp. Modifying factors: The symptoms are alleviated by nothing, the symptoms are aggravated by nothing. Severity of pain: At its worst the pain was moderate in the emergency department the pain is unchanged. The patient has experienced similar episodes in the past. The patient has not recently seen a physician. Pt reports right pelvic pain that started again yesterday. States she has had these pain several times in the past due to ovarian cysts. States she hasn't been able to follow up with TU[facility]TER due to child protection specialist conflicts. . 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 - Social history:: Smoking status: Patient denies any tobacco usage or history of. ROS: 23:21 Constitutional: Negative for fever, chills, and weight loss. kb 23:21 Abdomen/GI: Positive for abdominal pain, Negative for nausea, vomiting, and diarrhea. 23:21 : Positive for pelvic pain, vaginal bleeding. 23:21 All other systems are negative. Exam: 23:23 Constitutional: This is a well developed, well nourished patient who is awake, alert, kb and in no acute distress. ENT: Moist Mucous membranes Cardiovascular: Regular rate and rhythm with a normal S1 and S2. No gallops, murmurs, or rubs. No pulse deficits. Respiratory: Respirations even and unlabored. No increased work of breathing, no retractions or nasal flaring. Skin: Warm, dry with normal turgor. Normal color. MS/ Extremity: Pulses equal, no cyanosis. Neurovascular intact. Full, normal range of motion. Neuro: Awake and alert, GCS 15, oriented to person, place, time, and situation. Moves all extremities. Normal gait. Psych: Awake, alert, with orientation to person, place and time. Behavior, mood, and affect are within normal limits. 23:23 Abdomen/GI: Inspection: abdomen appears normal, Bowel sounds: normal, Palpation: moderate abdominal tenderness, in the right lower quadrant/pelvic. Vital Signs: 20:41 BP 117 / 73; Pulse 84; Resp 16; Temp 97.7; Pulse Ox 96% on R/A; Weight 86.18 kg; Height vg1 5 ft. 4 in. (162.56 cm); Pain 8/10; 21:20 BP 113 / 69; Pulse 75; Resp 19; Pulse Ox 99% ; rr5 22:00 BP 126 / 89; Pulse 85; Resp 16; Pulse Ox 98% ; rr5 22:49 BP 115 / 80; Pulse 80; Resp 15; Pulse Ox 100% ; rr5 20:41 Body Mass Index 32.61 (86.18 kg, 162.56 cm) vg1 MDM: 20:52 Patient medically screened. kb 23:20 Data reviewed: vital signs, nurses notes. Data interpreted: Pulse oximetry: on room air kb is 100 %. Interpretation: normal. Counseling: I had a detailed discussion with the patient and/or guardian regarding: the historical points, exam findings, and any diagnostic results supporting the discharge/admit diagnosis, lab results, radiology results, the need for outpatient follow up, an OB/Gyne specialist, to return to the emergency department if symptoms worsen or persist or if there are any questions or concerns that arise at home. 04/16 20:52 Order name: Basic Metabolic Panel; Complete Time: 21:33 kb 04/16 20:52 Order name: CBC with Diff; Complete Time: 21:39 kb 04/16 21:04 Order name: US Transvaginal Study (Probe) kb 04/16 21:20 Order name: CBC Smear Scan; Complete Time: 21:39 EDMS 04/16 22:09 Order name: Urine Dipstick-Ancillary; Complete Time: 22:14 EDMS 04/16 20:52 Order name: IV Saline Lock; Complete Time: 21:00 kb 04/16 20:52 Order name: Labs collected and sent; Complete Time: 21:00 kb 04/16 21:04 Order name: Urine Dipstick-Ancillary (obtain specimen); Complete Time: 22:08 kb Administered Medications: 21:50 Drug: TORadol - (ketorolac) 15 mg Route: IVP; Site: right antecubital; rr5 22:50 Follow up: Response: No adverse reaction; Pain is decreased rr5 Disposition: 04/17 04:14 Co-signature as Attending Physician, Felice Jang MD. mh7 Disposition: 04/16/21 22:34 Discharged to Home. Impression: Unspecified ovarian cysts, Leiomyoma of uterus, Anemia, unspecified. - Condition is Stable. - Discharge Instructions: Ovarian Cyst, Luov-rd-Laff, Uterine Fibroids, Pbra-xv-Chsd. - Prescriptions for Diclofenac Sodium 75 mg Oral Tablet, Delayed Release (E.C.) - take 1 tablet by ORAL route 2 times per day As needed; 30 tablet. - Medication Reconciliation Form, Thank You Letter, Antibiotic Education, Prescription Opioid Use form. - Follow up: Emergency Department; When: As needed; Reason: Worsening of condition. Follow up: Private Physician; When: 2 - 3 days; Reason: Recheck today's complaints, Continuance of care, Re-evaluation by your physician. Signatures: Dispatcher [employer] [facility] Wendi Evans, ERON-C DYE LAB TECHNICIAN-Bry Garza RN RN rr5 Evelyn Crawford RN RN vg1 Felice Jang MD MD mh7 Corrections: (The following items were deleted from the chart) 04/16 22:34 22:34 04/16/2021 22:34 Discharged to Home. Impression: Unspecified ovarian cysts; kb Leiomyoma of uterus. Condition is Stable. Forms are Medication Reconciliation Form, Thank You Letter, Antibiotic Education, Prescription Opioid Use. Follow up: Emergency Department; When: As needed; Reason: Worsening of condition. Follow up: Private Physician; When: 2 - 3 days; Reason: Recheck today's complaints, Continuance of care, Re-evaluation by your physician. kb 22:50 22:34 04/16/2021 22:34 Discharged to Home. Impression: Unspecified ovarian cysts; rr5 Leiomyoma of uterus; Anemia, unspecified. Condition is Stable. Forms are Medication Reconciliation Form, Thank You Letter, Antibiotic Education, Prescription Opioid Use. Follow up: Emergency Department; When: As needed; Reason: Worsening of condition. Follow up: Private Physician; When: 2 - 3 days; Reason: Recheck today's complaints, Continuance of care, Re-evaluation by your physician. kb
--- NOTE | 2021-04-16 22:35 | ER ---
Nurse's Notes [facility] Name: Kathy Valente Age: 45 yrs Sex: Female : 1975 Arrival Date: 04/16/2021 Time: 20:34 Bed 23 Private MD: Diagnosis: Unspecified ovarian cysts;Leiomyoma of uterus;Anemia, unspecified Presentation: 04/16 20:41 Chief complaint: Patient states: Intermittent RLQ pain that radiates to the back that vg1 began yesterday. Pt states has a hx of ovaria cysts. Coronavirus screen: Client denies travel out of the [place] in the last 14 days. Ebola Screen: Patient negative for fever greater than or equal to 101.5 degrees Fahrenheit, and additional compatible Ebola Virus Disease symptoms. Initial Sepsis Screen: Does the patient meet any 2 criteria? No. Patient's initial sepsis screen is negative. Does the patient have a suspected source of infection? No. Patient's initial sepsis screen is negative. Risk Assessment: Do you want to hurt yourself or someone else? Patient reports no desire to harm self or others. Onset of symptoms was April 15, 2021. 20:41 Method Of Arrival: Ambulatory vg1 20:41 Acuity: LETTY 3 vg1 Triage Assessment: 20:45 General: Appears in no apparent distress. uncomfortable, Behavior is calm, cooperative. vg1 Pain: Complains of pain in right lower quadrant Pain currently is 8 out of 10 on a pain scale. 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 - Social history:: Smoking status: Patient denies any tobacco usage or history of. Screenin:30 Abuse screen: Denies threats or abuse. Denies injuries from another. Nutritional rr5 screening: No deficits noted. Tuberculosis screening: No symptoms or risk factors identified. Fall Risk IV access (20 points). Total Escobar Fall Scale indicates No Risk (0-24 pts). Assessment: 21:00 General: Appears in no apparent distress. uncomfortable, Behavior is calm, cooperative, rr5 appropriate for age. 21:00 Pain: Complains of pain in abdomen and right lower quadrant Pain currently is 8 out of rr5 10 on a pain scale. Quality of pain is described as aching, Pain began gradually, Is intermittent. Neuro: Level of Consciousness is awake, alert, obeys commands, Oriented to person, place, time. Cardiovascular: Capillary refill < 3 seconds Patient's skin is warm and dry. Respiratory: Airway is patent Respiratory effort is even, unlabored, Respiratory pattern is regular, symmetrical. GI: Abdomen is round non-distended, Abd is soft and non tender Reports lower abdominal pain. Derm: Skin temperature is warm. 22:00 Reassessment: Patient appears in no apparent distress at this time. Patient is alert, rr5 oriented x 3, equal unlabored respirations, skin warm/dry/pink. awaiting for results. 22:46 Reassessment: Patient appears in no apparent distress at this time. Patient is alert, rr5 oriented x 3, equal unlabored respirations, skin warm/dry/pink. discharge instruction given and explained without complaints made Patient states feeling better. Patient states symptoms have improved. Vital Signs: 20:41 BP 117 / 73; Pulse 84; Resp 16; Temp 97.7; Pulse Ox 96% on R/A; Weight 86.18 kg; Height vg1 5 ft. 4 in. (162.56 cm); Pain 8/10; 21:20 BP 113 / 69; Pulse 75; Resp 19; Pulse Ox 99% ; rr5 22:00 BP 126 / 89; Pulse 85; Resp 16; Pulse Ox 98% ; rr5 22:49 BP 115 / 80; Pulse 80; Resp 15; Pulse Ox 100% ; rr5 20:41 Body Mass Index 32.61 (86.18 kg, 162.56 cm) vg1 ED Course: 20:34 Patient arrived in ED. mr 20:44 Triage completed. vg1 20:45 Arm band placed on Patient placed in waiting room, Patient notified of wait time. vg1 20:52 Wendi Evans FNP-C is PHCP. kb 20:52 Felice Jang MD is Attending Physician. kb 20:53 Bry Rosas RN is Primary Nurse. rr5 20:55 Inserted saline lock: 20 gauge in right antecubital area, using aseptic technique. ds4 Blood collected. 21:00 Patient has correct armband on for positive identification. Bed in low position. Call rr5 light in reach. 21:00 No provider procedures requiring assistance completed. rr5 21:50 US Transvaginal Study (Probe) In Process Unspecified. EDMS 22:47 IV discontinued, intact, bleeding controlled, No redness/swelling at site. Pressure rr5 dressing applied. Administered Medications: 21:50 Drug: TORadol - (ketorolac) 15 mg Route: IVP; Site: right antecubital; rr5 22:50 Follow up: Response: No adverse reaction; Pain is decreased rr5 Outcome: 22:34 Discharge ordered by . kb 22:47 Discharged to home ambulatory. rr5 22:47 Condition: stable 22:47 Discharge instructions given to patient, Instructed on discharge instructions, follow up and referral plans. medication usage, Demonstrated understanding of instructions, follow-up care, medications, Prescriptions given X 1. 22:50 Patient left the ED. rr5 Signatures: Dispatcher [employer] [facility] Wendi Evans, SLIP COVER SEAMSTRESS-C SLIP COVER SEAMSTRESS-Nancy Rossi Donovan ds4 Bry Rosas, RN RN rr5 Evelyn Crawford RN RN vg1
[2021-04-16 23:33] VITALS: TEMP 97.7
[2021-04-16 23:37] VITALS: BP 115/80; O2SAT 100
--- NOTE | 2021-04-18 18:17 | RAD REPORT ---
EXAM DESCRIPTION: Transvaginal Study Probe RadLex: US PELVIS TRANSVAGINAL CLINICAL HISTORY: ABD PAIN. COMPARISON: CT of the abdomen and pelvis from January 04, 2020. TECHNIQUE: Real-time grayscale and color Doppler images of the pelvis were obtained utilizing transa bdominal technique. Transvaginal technique was not performed per patient preference. FINDINGS: Uterus: 7.2 x 7 x 8.9 cm. Suspected intramural fibroid at the fundus measures 4.3 cm. Susp ected subserosal fibroid in the anterior uterine body measures 3.8 cm. Endometrium is obscured by the heterogeneous myometrium. Right ovary: 4.9 x 3.9 x 3.3 cm (volume 32.9 mL). Normal arterial flow. No concerning lesions. A simple appearing cyst in the right ovary measures 3.8 cm (likely functional, no follow-up imaging is recommended). Left ovary: 3.4 x 3.6 x 4.5 cm (volume 29.1 mL). Normal arterial flow. No concerning lesions. Jen l follicular changes. Urinary bladder: Unremarkable. Cul-de-sac: No free fluid identified. IMPRESSION: 1. Uterine fibroids. 2. Nonvisualization of the endometrium. 3. Normal appearance of the ovaries. Electronically signed by: Zahra Gonzalez MD 04/16/2021 10:11 PM CDT Due to temporary technical issues with the PACS/Fluency reporting system, reports are being signed by the in house radiologists without review as a courtesy to insure prompt reporting. The interpreting radiologist is fully responsible for the content of the report.
== END 2021-04-16 22:50 | disposition home or self-care (01) ==
LOC: ER 20:31
DX: N83.209 Unspecified ovarian cyst, unspecified side (principal); D25.9 Leiomyoma of uterus, unspecified; D64.9 Anemia, unspecified
CPT/HCPCS: 36415; 76830; 80048; 81003; 85025; 96374; 99284

== ENCOUNTER 2021-05-25 09:42 | Day surgery (SDC) | payer OTHER ==
[2021-05-24 17:28] LABS: Specific Gravity 1.025 (1.005-1.030)
[2021-05-25] MEDS ORDERED: Ringers Lactate 1,000 ML IV ONE (10:06)
[2021-05-25] MEDS ORDERED: ONDANSETRON 4 MG/2 ML VIAL ONE (10:17)
[2021-05-25] MEDS ORDERED: LIDOCAINE 2% MPF 5 ML VIAL ONE (10:17)
[2021-05-25] MEDS ORDERED: dexAMETHasone 4 MG/ML VIAL ONE (10:17)
[2021-05-25] MEDS ORDERED: MIDAZOLAM HCL 2 MG/2 ML INJ ONE (10:17)
[2021-05-25] MEDS ORDERED: FENTANYL CITR 100 MCG/2 ML ONE ×2 (10:17→11:26)
[2021-05-25] MEDS ORDERED: propofoL 200 MG/20 ML VIAL IV ONE ×2 (10:17→10:18)
[2021-05-25] MEDS ORDERED: KETOROLAC 30 MG/ML INJ ONE (10:17)
[2021-05-25] MEDS ORDERED: NA CHLORIDE 0.9% 1,000 ML ONE (10:36)
[2021-05-25] MEDS ORDERED: LIDOCAINE 1% W/EPI 1:100,000 MDV 20 ML VIAL ONE (10:36)
[2021-05-25] MEDS ORDERED: TRAMADOL HCL 50 MG TAB PO PRN (11:03)
[2021-05-25] MEDS ORDERED: IBUPROFEN 200 MG TAB PO PRN (11:03)
[2021-05-25] MEDS ORDERED: PROMETHAZINE INJ 25 MG/ML AMP IV PRN (11:03)
[2021-05-25] MEDS ORDERED: HYDROCODONE/APAP 5/325 MG TAB PO PRN (11:03)
--- NOTE | 2021-05-25 11:08 | P.BOP ---
Preoperative diagnosis: AUB-O/L, IVONNE Postoperative diagnosis: same Primary procedure: hsyteroscopy polyp/ mass biopsy and D/C Drill Press Set Up Operator Radial: NONE,NONE Estimated blood loss: min Specimen: pieces of mass/polyp, EMX Findings: large endometrial mass/encompassing entire cavity/smooth/lining normal Anesthesia: PCB Complications: None Transferred to: Recovery Room Condition: Good
[2021-05-25] MEDS ORDERED: HYDROCODONE/APAP 5/325 MG TAB ONE (11:59)
[2021-05-25 12:29] VITALS: BP 120/64; TEMP 97.6; O2SAT 100
--- NOTE | 2021-05-25 13:05 | OP ---
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 Peroperative Diagnoses: Abnormal uterine bleeding-due to ovulatory dysfunction/leiomyomas and severe iron deficiency anemia. Postoperative Diagnoses: Abnormal uterine bleeding-due to ovulatory dysfunction/leiomyomas and sever e iron deficiency anemia. Procedures Performed: Hysteroscopy, biopsy of the endometrial mass or polyp and dilation and curettage. Specimens: Pieces of the mass/polyp and endometrial curettings. Complications: No complications. Drains: No drains. Findings: Large endometrial mass encompassing the entire cavity, smooth on its surface and the linin g of the endometrial cavity was unremarkable. Unable to remove the entire mass. There was no cuttin g device available for removal of the entire mass and also it encompassed the entire cavity making it difficult for removal. Anesthesia: Paracervical block and MAC. Condition: Stable condition. The patient was transferred to same-day surgery without any problems. Indications: The patient is a 45-year-old female with severe heavy bleeding ongoing for 3 years, chicho ost daily at this point in time, severe anemia, needing a transfusion, hemoglobin less than 7 at the time and she does state that she received 2 or 3 units of blood transfusions and her hemoglobin after that was only 7, but this was a month ago. So, she was consented for endometrial sampling and cavit y visualization. Hysteroscopy and D and C were consented. Description Of Procedure: She was brought to the OR, placed in supine fashion, taken back to the OR after reconstructing the preop area, placed in a supine fashion on the operating table. MAC was give n. She was then placed in a dorsal lithotomy position. Pelvic exam performed. Vulva, vagina, and p erineum were prepped and draped in a sterile fashion. Speculum was placed to expose the cervix. Ant erior lip was grasped with 2 Allis clamps. Diagnostic SlimLine hysteroscope was used to enter the ce rvical canal and traversed under direct vision into the uterine cavity. This was done after a parace rvical block was given with 1% lidocaine mixed with 1:100,000 epinephrine and 10 cc was injected at 4 and 8 o'clock positions. Under direct visualization of the cavity, there was large smooth endometrial mass, either a polyp or a fibroid. As this was arising from the fundus of the uterine cavity and it encompassed the entire ca vity, it was very difficult to visualize anything else other than the mass. Once this was visualized , scope was removed. There was no cutting device available like the MyoSure. Attempted to get a goo d biopsy of the uterine mass and this was done with the help of polyp forceps as well as ring forceps . As this was smooth, it was difficult to hold it at its pedicle and remove it. Then went down to p erform endometrial curettings with a #2 curette. After satisfactory biopsy was done, the patient was recovered. Instrument, needle, and sponge counts were correct. She was taken to the to same-day [facility] in a stable condition. She will follow up with me in 1 week and then will make a decision on h ow to manage her from here. JOSUE Voice ID: [id number] Report ID: [id number]
[2021-05-25] MEDS ORDERED: HOME MED 1 EA UNK (Pregabalin [Pregabalin] 100 MG Capsule) PO SCH (21:00)
[2021-05-26] MEDS ORDERED: NORGESTIMATE ETHINYL ESTRADIOL PO SCH (09:00)
[2021-05-26] MEDS ORDERED: HOME MED 1 EA UNK (Iron [Iron] 18 MG Tablet) PO SCH (09:00)
[2021-05-26] MEDS ORDERED: FERROUS SULFATE 325 MG TAB PO SCH (09:00)
== END 2021-05-25 11:52 | disposition home or self-care (01) ==
LOC: OR 09:42
PROVIDERS: ATTEND Obstetrics & Gynecology
PROC: 0UDB7ZX Extraction of Endometrium, Via Natural or Artificial Opening, Diagnostic (ICD-10-PCS; 2021-05-25)
PROC: 0UB98ZX Excision of Uterus, Via Natural or Artificial Opening Endoscopic, Diagnostic (ICD-10-PCS; principal; 2021-05-25 11:15)
DX: N84.0 Polyp of corpus uteri (principal); D25.9 Leiomyoma of uterus, unspecified; N83.299 Other ovarian cyst, unspecified side; N92.1 Excessive and frequent menstruation with irregular cycle; D50.0 Iron deficiency anemia secondary to blood loss (chronic); Z20.822 Contact with and (suspected) exposure to COVID-19
CPT/HCPCS: 81025; 88305; 58558; U0003; J2704 ×2; J1100; J2250; J3010 ×2; J7120; J7030; J2405